=== PATIENT | male | born 1950 | race Caucasian/White ===

== ENCOUNTER → 2017-03-05 | Outpatient (CLI) | payer BC | LOC: ZCOL.LAB 19:56 | DX: H92.13 Otorrhea, bilateral (principal) ==

== ENCOUNTER → 2019-12-03 | Outpatient (CLI) | payer MEDICARE, BC | LOC: COL.RAD 09:09 | DX: M19.90 Unspecified osteoarthritis, unspecified site (principal); R74.8 Abnormal levels of other serum enzymes; Z96.642 Presence of left artificial hip joint | CPT/HCPCS: A9503 ==

== ENCOUNTER → 2020-05-21 | Outpatient (CLI) | payer MEDICARE, BC | LOC: COL.RAD 09:19 | DX: M79.652 Pain in left thigh (principal); Z96.642 Presence of left artificial hip joint | CPT/HCPCS: A9503 ==